=== PATIENT | male | born 1965 | race Caucasian/White ===

== ENCOUNTER 2016-09-05 11:37 | Emergency (ER) | payer OTHER ==
[~2016-09-05] VITALS: Ht 167.6 cm; Wt 82.0 kg
[~2016-09-05 11:37] MED LIST: METH10 PO
[2016-09-05 13:32] VITALS: BP 115/73
== END 2016-09-05 13:34 | disposition home or self-care (01) ==
LOC: EMS 11:40
DX: L02.416 Cutaneous abscess of left lower limb (principal); L03.116 Cellulitis of left lower limb; L08.9 Local infection of the skin and subcutaneous tissue, unspecified; F11.10 Opioid abuse, uncomplicated; F17.210 Nicotine dependence, cigarettes, uncomplicated; Z88.0 Allergy status to penicillin; Z88.2 Allergy status to sulfonamides
CPT/HCPCS: 99283

== ENCOUNTER 2019-05-20 13:21 | Emergency (ER) | payer MEDICAID, OTHER ==
[~2019-05-20] VITALS: Ht 167.6 cm; Wt 74.0 kg
[2019-05-20] MEDS ORDERED: INHALER IH (13:24)
[2019-05-20] MEDS ORDERED: SODIUM CHLORIDE 0.9% 2,200 ML IV ONE (15:13)
[2019-05-20] MEDS ORDERED: 0.9% SODIUM CHLORIDE 10 ML SYRINGE IVP PRN (15:15)
[2019-05-20] MEDS ORDERED: MethylPREDNISolone SOD SUCC 125 MG/2 ML VIAL IVP ONE (16:00)
[2019-05-20] MEDS ORDERED: ALBUTEROL SULFATE 5 MG/ML 20 ML NEB SOLN [BULK] NEB ONE (16:00)
[2019-05-20] MEDS ORDERED: IPRATROPIUM BROMIDE 0.5 MG/2.5 ML NEB SOLUTION NEB ONE (16:00)
[2019-05-20 16:03] LABS: BASOPHILS % (AUTO) 0.3 % (0.0-2.0); EOSINOPHILS % (AUTO) 4.3 % (1.0-6.0); HEMATOCRIT 40.7 % (41-53); HEMOGLOBIN 13.6 g/dL (13.5-17.5); LYMPHOCYTES # (AUTO) 0.3 K/uL (1.0-4.8); MEAN CORPUSCULAR HEMOGLOBIN 27.1 pg (26.0-34.0); MEAN CORPUSCULAR HGB CONC 33.4 G/dL (31.0-37.0); MEAN CORPUSCULAR VOLUME 81 fL (80-100); MONOCYTES # (AUTO) 0.6 K/uL (0.1-1.0); MONOCYTES % (AUTO) 9.1 % (2.0-9.0); NEUTROPHILS # (AUTO) 4.9 K/uL (1.8-7.7); NEUTROPHILS % (AUTO) 81.3 % (40.0-70.0); PLATELET COUNT (AUTO) 186 K/uL (150-450); RED BLOOD CELL COUNT(AUTO) 5.01 MIL/uL (4.50-5.90)
[2019-05-20 16:19] LABS: ANION GAP 6 mmol/L (8-16); CALCIUM, TOTAL 8.9 mg/dL (8.8-10.5); CARBON DIOXIDE 30 mmol/L (22-29); CHLORIDE 99 mmol/L (98-107); CREATININE 1.03 mg/dL (0.60-1.30); GLOMERULAR FILTR. RATE CALC > 60 mL/min (>60); GLUCOSE,RANDOM 138 mg/dL (70-110); POTASSIUM 4.2 mmol/L (3.5-5.1); SODIUM SERUM 135 mmol/L (136-145); UREA NITROGEN, BLOOD 17 mg/dL (7-18)
[2019-05-20 16:23] LABS: ALANINE AMINOTRANSFERASE 126 U/L (12-78); ALBUMIN 3.3 g/dL (3.4-5.0); ALKALINE PHOSPHATASE 285 U/L (46-116); ASPARTATE AMINOTRANSFERASE 178 U/L (15-37); BILIRUBIN,TOTAL 0.8 mg/dL (0.1-1.0); TOTAL PROTEIN, SERUM 8.3 g/dL (6.4-8.2)
[2019-05-20 16:25] LABS: INFLUENZA TYPE A NEGATIVE FOR TYPE A (NEGATIVE); INFLUENZA TYPE B NEGATIVE FOR TYPE B (NEGATIVE)
[2019-05-20 16:28] LABS: D-DIMER 2.53 mg/L FEU (0.00-0.50); INR 1.1 (0.9-1.1); PROTHROMBIN TIME 10.8 SEC (9.4-11.6)
[2019-05-20 16:31] LABS: LACTIC ACID 1.2 mmol/L (0.4-2.0)
[2019-05-20 16:50] LABS: B-TYPE NATRIURETIC PEPTIDE 67 pg/mL (0-100)
[2019-05-20] MEDS ORDERED: IOVERSOL 320 MG/ML 100 ML VIAL ONE (17:48)
[2019-05-20] MEDS ORDERED: SODIUM CHLORIDE 0.9% 100 ML ONE (17:49)
[2019-05-20 22:37] VITALS: BP 145/98
[2019-05-20] MEDS ORDERED: ALBUTEROL SULFATE HFA 90 MCG/PUFF 8 GM INHALER IH ONE (22:45)
== END 2019-05-21 02:00 | disposition home or self-care (01) ==
LOC: EMS 13:22
DX: J44.1 Chronic obstructive pulmonary disease with (acute) exacerbation (principal); M48.54XA Collapsed vertebra, not elsewhere classified, thoracic region, initial encounter for fracture; M48.56XA Collapsed vertebra, not elsewhere classified, lumbar region, initial encounter for fracture; R91.1 Solitary pulmonary nodule; F17.210 Nicotine dependence, cigarettes, uncomplicated; Z88.0 Allergy status to penicillin; Z88.1 Allergy status to other antibiotic agents
CPT/HCPCS: 36415; 71045; 71275; 80053; 83605; 83880; 84484; 85025; 85379; 85610; 87040; 87804; 93005; 94640; 96374; 99285; J2930; J7030; J7050; Q9967; J3535

== ENCOUNTER 2019-06-17 15:28 | Inpatient (IN) | payer MEDICAID, OTHER ==
[~2019-06-17] VITALS: Ht 167.6 cm; Wt 67.1 kg
[~2019-06-17 15:28] MED LIST changes: +INHALER IH; -METH10 PO
[2019-06-17] MEDS ORDERED: HYDROmorphone 2 MG/ML SYRINGE IVP ONE (17:00)
[2019-06-17] MEDS ORDERED: LIDOCAINE 1% 10 ML VIAL INJ ONE (17:00)
[2019-06-17] MEDS ORDERED: CLINDAMYCIN 900 MG/D5% WATER 50 ML IV ONE (17:00)
[2019-06-17 17:23] LABS: HEMATOCRIT 37.5 % (41-53); HEMOGLOBIN 12.5 g/dL (13.5-17.5); LYMPHOCYTES # (AUTO) 2.1 K/uL (1.0-4.8); LYMPHOCYTES % (AUTO) 32.9 % (22.0-44.0); MEAN CORPUSCULAR HEMOGLOBIN 27.1 pg (26.0-34.0); MEAN CORPUSCULAR HGB CONC 33.4 G/dL (31.0-37.0); MEAN CORPUSCULAR VOLUME 81 fL (80-100); MONOCYTES # (AUTO) 0.7 K/uL (0.1-1.0); NEUTROPHILS # (AUTO) 3.2 K/uL (1.8-7.7); NEUTROPHILS % (AUTO) 51.1 % (40.0-70.0); PLATELET COUNT (AUTO) 265 K/uL (150-450); RED BLOOD CELL COUNT(AUTO) 4.61 MIL/uL (4.50-5.90); RED CELL DISTRIBUTION WIDTH 15.1 % (11.5-14.5)
[2019-06-17 17:35] LABS: ANION GAP 6 mmol/L (8-16); CALCIUM, TOTAL 9.6 mg/dL (8.8-10.5); CARBON DIOXIDE 34 mmol/L (22-29); CHLORIDE 101 mmol/L (98-107); CREATININE 0.88 mg/dL (0.60-1.30); GLOMERULAR FILTR. RATE CALC > 60 mL/min (>60); GLUCOSE,RANDOM 103 mg/dL (70-110); POTASSIUM 4.3 mmol/L (3.5-5.1); SODIUM SERUM 141 mmol/L (136-145); UREA NITROGEN, BLOOD 18 mg/dL (7-18)
[2019-06-17 17:41] LABS: ALANINE AMINOTRANSFERASE 27 U/L (12-78); ALBUMIN 3.1 g/dL (3.4-5.0); ALKALINE PHOSPHATASE 141 U/L (46-116); ASPARTATE AMINOTRANSFERASE 31 U/L (15-37); BILIRUBIN,TOTAL 0.3 mg/dL (0.1-1.0); TOTAL PROTEIN, SERUM 7.9 g/dL (6.4-8.2)
[2019-06-17 21:10] VITALS: BP 110/72
[2019-06-17] MEDS ORDERED: ZOLPIDEM TARTRATE 5 MG TABLET PO PRN (21:30)
[2019-06-17] MEDS ORDERED: BISACODYL 10 MG RECTAL RECTAL SUPPOSITORY PR PRN (21:30)
[2019-06-17] MEDS ORDERED: MAGNESIUM HYDROXIDE SUSPENSION 30 ML UDCUP PO PRN (21:30)
[2019-06-17] MEDS ORDERED: ALBUTEROL SULFATE 2.5 MG/0.5 ML NEB SOLUTION NEB PRN (21:30)
[2019-06-17] MEDS ORDERED: ONDANSETRON HCL 4 MG/2 ML VIAL IVP PRN (21:30)
[2019-06-17] MEDS ORDERED: ACETAMINOPHEN 325 MG TABLET PO PRN (21:30)
[2019-06-17] MEDS ORDERED: MORPHINE SULFATE 2 MG/ML SYRINGE IVP PRN (21:30)
[2019-06-17] MEDS ORDERED: VANCOMYCIN HCL 1.25 GM in DEXTROSE 5%-WATER 250 ML IV ONE (22:00)
[2019-06-17] MEDS ORDERED: SODIUM CHLORIDE 0.9% 250 ML IV ONE (22:45)
[2019-06-17] MEDS: HEPARIN SODIUM,PORCINE 5,000 UNITS/ML VIAL SQ SCH (22:56)
[2019-06-18] VITALS (7 sets, daily range): BP systolic 105–140; BP diastolic 57–80
[2019-06-18] MEDS: VANCOMYCIN HCL 750 MG in DEXTROSE 5%-WATER 250 ML IV SCH ×2 (06:58→15:40)
[2019-06-18] MEDS: DOCUSATE SODIUM 100 MG CAPSULE PO SCH ×2 (08:28→21:00)
[2019-06-18] MEDS: PANTOPRAZOLE SODIUM 40 MG DR TABLET PO SCH (08:30)
[2019-06-18] MEDS: HEPARIN SODIUM,PORCINE 5,000 UNITS/ML VIAL SQ SCH ×2 (08:30→15:55)
[2019-06-18] MEDS: HYDROCODONE/ACETAMINOPHEN 5-325 MG TABLET PO PRN ×2 (09:06→21:14)
[2019-06-18 10:49] LABS: BASOPHILS % (AUTO) 1.1 % (0.0-2.0); EOSINOPHILS % (AUTO) 6.3 % (1.0-6.0); HEMATOCRIT 39.5 % (41-53); HEMOGLOBIN 13.3 g/dL (13.5-17.5); LYMPHOCYTES # (AUTO) 1.5 K/uL (1.0-4.8); LYMPHOCYTES % (AUTO) 33.7 % (22.0-44.0); MEAN CORPUSCULAR HEMOGLOBIN 27.3 pg (26.0-34.0); MEAN CORPUSCULAR HGB CONC 33.5 G/dL (31.0-37.0); MEAN CORPUSCULAR VOLUME 82 fL (80-100); MONOCYTES # (AUTO) 0.5 K/uL (0.1-1.0); MONOCYTES % (AUTO) 10.9 % (2.0-9.0); NEUTROPHILS # (AUTO) 2.1 K/uL (1.8-7.7); PLATELET COUNT (AUTO) 237 K/uL (150-450); RED BLOOD CELL COUNT(AUTO) 4.85 MIL/uL (4.50-5.90); RED CELL DISTRIBUTION WIDTH 15.1 % (11.5-14.5)
[2019-06-18] MEDS ORDERED: METH10SO PO (10:56)
[2019-06-18 10:58] LABS: ANION GAP 3 mmol/L (8-16); CALCIUM, TOTAL 9.2 mg/dL (8.8-10.5); CARBON DIOXIDE 33 mmol/L (22-29); CHLORIDE 104 mmol/L (98-107); CREATININE 0.79 mg/dL (0.60-1.30); GLOMERULAR FILTR. RATE CALC > 60 mL/min (>60); GLUCOSE,RANDOM 100 mg/dL (70-110); POTASSIUM 5.1 mmol/L (3.5-5.1); SODIUM SERUM 140 mmol/L (136-145); UREA NITROGEN, BLOOD 14 mg/dL (7-18)
[2019-06-18] MEDS ORDERED: METHADONE HCL 10 MG/5 ML SOLUTION ORAL.SYG PO SCH (11:00)
[2019-06-18] MEDS: METHADONE HCL 10 MG TABLET PO SCH (12:52)
[2019-06-19 04:50] VITALS: BP 128/85
[2019-06-19] MEDS: HYDROCODONE/ACETAMINOPHEN 5-325 MG TABLET PO PRN ×2 (06:06→14:26)
[2019-06-19] MEDS: VANCOMYCIN HCL 750 MG in DEXTROSE 5%-WATER 250 ML IV SCH ×4 (06:07→16:00)
[2019-06-19 07:35] LABS: BASOPHILS % (AUTO) 1.1 % (0.0-2.0); EOSINOPHILS % (AUTO) 6.5 % (1.0-6.0); HEMATOCRIT 38.5 % (41-53); LYMPHOCYTES # (AUTO) 2.3 K/uL (1.0-4.8); LYMPHOCYTES % (AUTO) 38.7 % (22.0-44.0); MEAN CORPUSCULAR HEMOGLOBIN 27.5 pg (26.0-34.0); MEAN CORPUSCULAR HGB CONC 33.8 G/dL (31.0-37.0); MEAN CORPUSCULAR VOLUME 81 fL (80-100); MONOCYTES # (AUTO) 0.5 K/uL (0.1-1.0); MONOCYTES % (AUTO) 8.6 % (2.0-9.0); NEUTROPHILS # (AUTO) 2.7 K/uL (1.8-7.7); NEUTROPHILS % (AUTO) 45.1 % (40.0-70.0); PLATELET COUNT (AUTO) 286 K/uL (150-450); RED BLOOD CELL COUNT(AUTO) 4.73 MIL/uL (4.50-5.90)
[2019-06-19 07:48] LABS: ANION GAP 6 mmol/L (8-16); CALCIUM, TOTAL 9.3 mg/dL (8.8-10.5); CARBON DIOXIDE 30 mmol/L (22-29); CHLORIDE 100 mmol/L (98-107); CREATININE 0.74 mg/dL (0.60-1.30); GLOMERULAR FILTR. RATE CALC > 60 mL/min (>60); GLUCOSE,RANDOM 91 mg/dL (70-110); POTASSIUM 4.4 mmol/L (3.5-5.1); SODIUM SERUM 136 mmol/L (136-145); UREA NITROGEN, BLOOD 15 mg/dL (7-18); VANCOMYCIN,RANDOM 16.2 mcg/mL (25.0-50.0)
[2019-06-19] MEDS: PANTOPRAZOLE SODIUM 40 MG DR TABLET PO SCH (08:31)
[2019-06-19] MEDS: DOCUSATE SODIUM 100 MG CAPSULE PO SCH (08:31)
[2019-06-19] MEDS: METHADONE HCL 10 MG TABLET PO SCH (08:31)
[2019-06-19] MEDS: HEPARIN SODIUM,PORCINE 5,000 UNITS/ML VIAL SQ SCH ×3 (08:31→16:02)
[2019-06-19 09:31] VITALS: BP 134/73
[2019-06-19 13:35] VITALS: BP 111/69
== END 2019-06-19 18:00 | disposition home or self-care (01) | DRG 383 ==
LOC: EMS 15:29 → 6N 18:49
PROVIDERS: ADMIT Internal Medicine; ATTEND Internal Medicine
PROC: 0Y9H0ZZ Drainage of Right Lower Leg, Open Approach (ICD-10-PCS; principal; 2019-06-17)
DX: L03.115 Cellulitis of right lower limb (principal); F17.210 Nicotine dependence, cigarettes, uncomplicated; J45.909 Unspecified asthma, uncomplicated; L02.415 Cutaneous abscess of right lower limb; Z88.0 Allergy status to penicillin; Z88.2 Allergy status to sulfonamides
CPT/HCPCS: 73700; 87070; 87081; 87205; 93970; 96365; J1170; J1644; J3370; J3490; J7050; J7060

== ENCOUNTER 2019-06-28 07:30 | Inpatient (IN) | payer OTHER ==
[~2019-06-28] VITALS: Ht 170.2 cm; Wt 67.4 kg
[~2019-06-28 07:30] MED LIST changes: +METH10SO PO
[2019-06-28] MEDS ORDERED: MethylPREDNISolone SOD SUCC 125 MG/2 ML VIAL IVP ONE (07:45)
[2019-06-28] MEDS ORDERED: IPRATROPIUM BROMIDE 0.5 MG/2.5 ML NEB SOLUTION NEB ONE (07:45)
[2019-06-28] MEDS ORDERED: ALBUTEROL SULFATE 5 MG/ML 20 ML NEB SOLN [BULK] NEB ONE (07:45)
[2019-06-28] MEDS ORDERED: 0.9% SODIUM CHLORIDE 5 ML NEB SOLUTION NEB ONE (07:46)
[2019-06-28 07:49] LABS: BASOPHILS % (AUTO) 0.6 % (0.0-2.0); EOSINOPHILS % (AUTO) 1.2 % (1.0-6.0); HEMATOCRIT 41.3 % (41-53); HEMOGLOBIN 13.5 g/dL (13.5-17.5); LYMPHOCYTES # (AUTO) 3.1 K/uL (1.0-4.8); LYMPHOCYTES % (AUTO) 19.7 % (22.0-44.0); MEAN CORPUSCULAR HGB CONC 32.7 G/dL (31.0-37.0); MEAN CORPUSCULAR VOLUME 83 fL (80-100); MONOCYTES # (AUTO) 1.4 K/uL (0.1-1.0); MONOCYTES % (AUTO) 8.4 % (2.0-9.0); NEUTROPHILS # (AUTO) 11.2 K/uL (1.8-7.7); NEUTROPHILS % (AUTO) 70.1 % (40.0-70.0); PLATELET COUNT (AUTO) 362 K/uL (150-450); RED BLOOD CELL COUNT(AUTO) 5.01 MIL/uL (4.50-5.90)
[2019-06-28 07:57] LABS: ANION GAP 7 mmol/L (8-16); CARBON DIOXIDE 29 mmol/L (22-29); CHLORIDE 99 mmol/L (98-107); CREATININE 0.82 mg/dL (0.60-1.30); GLOMERULAR FILTR. RATE CALC > 60 mL/min (>60); GLUCOSE,RANDOM 102 mg/dL (70-110); POTASSIUM 4.8 mmol/L (3.5-5.1); SODIUM SERUM 135 mmol/L (136-145); UREA NITROGEN, BLOOD 12 mg/dL (7-18)
[2019-06-28 08:03] LABS: ALANINE AMINOTRANSFERASE 33 U/L (12-78); ALBUMIN 3.3 g/dL (3.4-5.0); ALKALINE PHOSPHATASE 175 U/L (46-116); ASPARTATE AMINOTRANSFERASE 42 U/L (15-37); BILIRUBIN,TOTAL 0.7 mg/dL (0.1-1.0); TOTAL PROTEIN, SERUM 9.6 g/dL (6.4-8.2)
[2019-06-28 08:20] LABS: B-TYPE NATRIURETIC PEPTIDE 251 pg/mL (0-100)
[2019-06-28] MEDS ORDERED: ACETAMINOPHEN 325 MG TABLET PO PRN ×2 (09:15→16:00)
[2019-06-28] MEDS ORDERED: ONDANSETRON HCL 4 MG/2 ML VIAL IVP PRN ×2 (09:15→16:00)
[2019-06-28] MEDS: ALBUTEROL SULFATE 2.5 MG/0.5 ML NEB SOLUTION NEB SCH ×4 (10:46→22:55)
[2019-06-28] MEDS: IPRATROPIUM BROMIDE 0.5 MG/2.5 ML NEB SOLUTION NEB SCH ×4 (10:46→22:55)
[2019-06-28] MEDS ORDERED: ZOLPIDEM TARTRATE 5 MG TABLET PO PRN (16:00)
[2019-06-28] MEDS ORDERED: BISACODYL 10 MG RECTAL RECTAL SUPPOSITORY PR PRN (16:00)
[2019-06-28] MEDS ORDERED: IPRATROPIUM BROMIDE 0.5 MG/2.5 ML NEB SOLUTION NEB PRN (16:00)
[2019-06-28] MEDS ORDERED: METHADONE HCL 10 MG TABLET PO ONE (16:00)
[2019-06-28] MEDS ORDERED: ALBUTEROL SULFATE 2.5 MG/0.5 ML NEB SOLUTION NEB PRN (16:00)
[2019-06-28] MEDS ORDERED: MAGNESIUM HYDROXIDE SUSPENSION 30 ML UDCUP PO PRN (16:00)
[2019-06-28] MEDS: HEPARIN SODIUM,PORCINE 5,000 UNITS/ML VIAL SQ SCH (16:19)
[2019-06-28 16:41] VITALS: BP 113/68
[2019-06-28] MEDS ORDERED: PNEUMOCOCCAL VACCINE POLYVALENT 0.5 ML VIAL [PPSV23] IM ONE (17:30)
[2019-06-28] MEDS: MethylPREDNISolone SOD SUCC 125 MG/2 ML VIAL IVP SCH ×2 (17:35→23:10)
[2019-06-28 19:44] VITALS: BP 116/65
[2019-06-28] MEDS: DOCUSATE SODIUM 100 MG CAPSULE PO SCH (20:35)
[2019-06-28] MEDS: BENZONATATE 100 MG CAPSULE PO PRN (20:51)
[2019-06-28] MEDS: MORPHINE SULFATE 2 MG/ML SYRINGE IVP PRN (23:10)
[2019-06-28 23:38] VITALS: BP 135/68
[2019-06-29] MEDS: IPRATROPIUM BROMIDE 0.5 MG/2.5 ML NEB SOLUTION NEB SCH ×6 (02:53→23:09)
[2019-06-29] MEDS: ALBUTEROL SULFATE 2.5 MG/0.5 ML NEB SOLUTION NEB SCH ×6 (02:53→23:09)
[2019-06-29 04:42] VITALS: BP 116/65
[2019-06-29] MEDS: MethylPREDNISolone SOD SUCC 125 MG/2 ML VIAL IVP SCH ×3 (05:49→17:09)
[2019-06-29 08:04] VITALS: BP 132/79
[2019-06-29] MEDS: PANTOPRAZOLE SODIUM 40 MG DR TABLET PO SCH (08:08)
[2019-06-29] MEDS: HEPARIN SODIUM,PORCINE 5,000 UNITS/ML VIAL SQ SCH ×3 (08:08→17:09)
[2019-06-29] MEDS: DOCUSATE SODIUM 100 MG CAPSULE PO SCH ×2 (08:09→20:10)
[2019-06-29] MEDS: METHADONE HCL 10 MG/5 ML SOLUTION ORAL.SYG PO SCH (08:09)
[2019-06-29 11:56] VITALS: BP 111/65
[2019-06-29] MEDS: MORPHINE SULFATE 2 MG/ML SYRINGE IVP PRN ×2 (14:18→20:07)
[2019-06-29 15:35] VITALS: BP 102/62
[2019-06-29 19:53] VITALS: BP 130/86
[2019-06-29 23:40] VITALS: BP 132/75
[2019-06-30] MEDS: MethylPREDNISolone SOD SUCC 125 MG/2 ML VIAL IVP SCH ×4 (00:08→17:33)
[2019-06-30] MEDS: MORPHINE SULFATE 2 MG/ML SYRINGE IVP PRN ×4 (00:08→21:15)
[2019-06-30] MEDS: BENZONATATE 100 MG CAPSULE PO PRN ×2 (03:15→05:46)
[2019-06-30] MEDS: ALBUTEROL SULFATE 2.5 MG/0.5 ML NEB SOLUTION NEB SCH ×6 (03:19→23:37)
[2019-06-30] MEDS: IPRATROPIUM BROMIDE 0.5 MG/2.5 ML NEB SOLUTION NEB SCH ×6 (03:19→23:37)
[2019-06-30 03:26] VITALS: BP 148/87
[2019-06-30 06:34] LABS: BASOPHILS % (AUTO) 0.1 % (0.0-2.0); EOSINOPHILS % (AUTO) 0 % (1.0-6.0); HEMATOCRIT 33.7 % (41-53); HEMOGLOBIN 11.3 g/dL (13.5-17.5); LYMPHOCYTES # (AUTO) 1.1 K/uL (1.0-4.8); LYMPHOCYTES % (AUTO) 6.8 % (22.0-44.0); MEAN CORPUSCULAR HEMOGLOBIN 27.3 pg (26.0-34.0); MEAN CORPUSCULAR HGB CONC 33.5 G/dL (31.0-37.0); MEAN CORPUSCULAR VOLUME 82 fL (80-100); MONOCYTES # (AUTO) 0.7 K/uL (0.1-1.0); MONOCYTES % (AUTO) 4.4 % (2.0-9.0); NEUTROPHILS # (AUTO) 13.7 K/uL (1.8-7.7); PLATELET COUNT (AUTO) 396 K/uL (150-450); RED BLOOD CELL COUNT(AUTO) 4.14 MIL/uL (4.50-5.90); RED CELL DISTRIBUTION WIDTH 15.2 % (11.5-14.5)
[2019-06-30 06:50] LABS: NEUTROPHILS % (AUTO) 88.7 % (40.0-70.0)
[2019-06-30 06:51] LABS: ALANINE AMINOTRANSFERASE 51 U/L (12-78); ALBUMIN 2.6 g/dL (3.4-5.0); ALKALINE PHOSPHATASE 125 U/L (46-116); ANION GAP 6 mmol/L (8-16); ASPARTATE AMINOTRANSFERASE 43 U/L (15-37); BILIRUBIN,TOTAL 0.2 mg/dL (0.1-1.0); CALCIUM, TOTAL 9.7 mg/dL (8.8-10.5); CARBON DIOXIDE 32 mmol/L (22-29); CHLORIDE 101 mmol/L (98-107); CREATININE 0.78 mg/dL (0.60-1.30); GLOMERULAR FILTR. RATE CALC > 60 mL/min (>60); GLUCOSE,RANDOM 134 mg/dL (70-110); POTASSIUM 3.8 mmol/L (3.5-5.1); SODIUM SERUM 139 mmol/L (136-145); TOTAL PROTEIN, SERUM 7.7 g/dL (6.4-8.2); UREA NITROGEN, BLOOD 21 mg/dL (7-18)
[2019-06-30] MEDS: HEPARIN SODIUM,PORCINE 5,000 UNITS/ML VIAL SQ SCH ×3 (08:00→16:00)
[2019-06-30] MEDS: DOCUSATE SODIUM 100 MG CAPSULE PO SCH ×2 (10:22→21:14)
[2019-06-30] MEDS: PANTOPRAZOLE SODIUM 40 MG DR TABLET PO SCH (10:22)
[2019-06-30] MEDS: METHADONE HCL 10 MG/5 ML SOLUTION ORAL.SYG PO SCH (10:30)
[2019-06-30 12:00] VITALS: BP 130/76
[2019-06-30 12:27] LABS: LIPASE 30 U/L (73-393)
[2019-06-30 15:16] VITALS: BP 129/82
[2019-06-30 19:51] VITALS: BP 118/76
[2019-06-30] MEDS: GuaiFENesin SR 600 MG ER TABLET PO SCH (21:14)
[2019-06-30 23:52] VITALS: BP 123/72
[2019-07-01] MEDS: MethylPREDNISolone SOD SUCC 125 MG/2 ML VIAL IVP SCH ×2 (00:28→05:50)
[2019-07-01] MEDS: HEPARIN SODIUM,PORCINE 5,000 UNITS/ML VIAL SQ SCH ×4 (00:28→22:57)
[2019-07-01] MEDS: IPRATROPIUM BROMIDE 0.5 MG/2.5 ML NEB SOLUTION NEB SCH ×6 (03:00→23:07)
[2019-07-01] MEDS: ALBUTEROL SULFATE 2.5 MG/0.5 ML NEB SOLUTION NEB SCH ×6 (03:00→23:07)
[2019-07-01 05:30] VITALS: BP 122/70
[2019-07-01] MEDS: MORPHINE SULFATE 2 MG/ML SYRINGE IVP PRN ×4 (05:50→21:10)
[2019-07-01 07:35] VITALS: BP 152/67
[2019-07-01 08:04] LABS: ALANINE AMINOTRANSFERASE 75 U/L (12-78); ALBUMIN 2.7 g/dL (3.4-5.0); ALKALINE PHOSPHATASE 122 U/L (46-116); ANION GAP 9 mmol/L (8-16); ASPARTATE AMINOTRANSFERASE 52 U/L (15-37); BILIRUBIN,TOTAL 0.2 mg/dL (0.1-1.0); CALCIUM, TOTAL 9.3 mg/dL (8.8-10.5); CARBON DIOXIDE 32 mmol/L (22-29); CHLORIDE 100 mmol/L (98-107); CREATININE 0.75 mg/dL (0.60-1.30); GLOMERULAR FILTR. RATE CALC > 60 mL/min (>60); GLUCOSE,RANDOM 121 mg/dL (70-110); POTASSIUM 4.2 mmol/L (3.5-5.1); SODIUM SERUM 141 mmol/L (136-145); TOTAL PROTEIN, SERUM 7.1 g/dL (6.4-8.2); UREA NITROGEN, BLOOD 20 mg/dL (7-18)
[2019-07-01 08:18] LABS: HEMATOCRIT 35.1 % (41-53); HEMOGLOBIN 11.7 g/dL (13.5-17.5); MEAN CORPUSCULAR HEMOGLOBIN 27.2 pg (26.0-34.0); MEAN CORPUSCULAR HGB CONC 33.3 G/dL (31.0-37.0); MEAN CORPUSCULAR VOLUME 82 fL (80-100); PLATELET COUNT (AUTO) 363 K/uL (150-450); RED BLOOD CELL COUNT(AUTO) 4.29 MIL/uL (4.50-5.90); RED CELL DISTRIBUTION WIDTH 14.9 % (11.5-14.5)
[2019-07-01] MEDS: PANTOPRAZOLE SODIUM 40 MG DR TABLET PO SCH (08:29)
[2019-07-01] MEDS: GuaiFENesin SR 600 MG ER TABLET PO SCH ×2 (08:29→21:10)
[2019-07-01] MEDS: DOCUSATE SODIUM 100 MG CAPSULE PO SCH ×2 (08:56→21:00)
[2019-07-01] MEDS: METHADONE HCL 10 MG/5 ML SOLUTION ORAL.SYG PO SCH (08:57)
[2019-07-01 09:55] LABS: BAND NEUTROPHILS % (MANUAL) 11 % (0-5); LYMPHOCYTES % (MANUAL) 12 % (22-44); MONOCYTES % (MANUAL) 5 % (2-9); SEGMENTED NEUTROPHILS % 72 % (40-70)
[2019-07-01 11:25] VITALS: BP 141/80
[2019-07-01] MEDS: MethylPREDNISolone SOD SUCC 40 MG/ML VIAL IVP SCH ×3 (12:00→22:57)
[2019-07-01] MEDS ORDERED: SODIUM CHLORIDE 0.9% 100 ML ONE (12:20)
[2019-07-01] MEDS ORDERED: IOVERSOL 320 MG/ML 100 ML VIAL ONE (12:20)
[2019-07-01 16:40] VITALS: BP 138/70
[2019-07-01] MEDS: OxyCODONE HCL/ACETAMINOPHEN 5-325 MG TABLET PO PRN (18:13)
[2019-07-01 20:26] VITALS: BP 128/67
[2019-07-02] VITALS (7 sets, daily range): BP systolic 136–173; BP diastolic 81–103
[2019-07-02 01:27] LABS: APPEARANCE,URINE CLEAR (CLEAR); BILIRUBIN,URINE NEGATIVE (NEGATIVE); GLUCOSE, URINE (UA) NEGATIVE (NEGATIVE); KETONES,URINE NEGATIVE (NEGATIVE); LEUKOCYTE ESTERASE ,URINE NEGATIVE (NEGATIVE); NITRATE,URINE NEGATIVE (NEGATIVE); OCCULT BLOOD,URINE NEGATIVE (NEGATIVE); PH,URINE 6.5 (5.0-8.0); PROTEIN,URINE NEGATIVE (NEGATIVE); UROBILINOGEN,URINE 0.2 mg/dL (<=1.0)
[2019-07-02] MEDS: IPRATROPIUM BROMIDE 0.5 MG/2.5 ML NEB SOLUTION NEB SCH ×6 (03:00→23:04)
[2019-07-02] MEDS: ALBUTEROL SULFATE 2.5 MG/0.5 ML NEB SOLUTION NEB SCH ×6 (03:00→23:04)
[2019-07-02] MEDS: MethylPREDNISolone SOD SUCC 40 MG/ML VIAL IVP SCH ×3 (05:24→20:21)
[2019-07-02] MEDS: MORPHINE SULFATE 2 MG/ML SYRINGE IVP PRN ×2 (05:32→20:22)
[2019-07-02] MEDS: DOCUSATE SODIUM 100 MG CAPSULE PO SCH ×2 (08:46→20:21)
[2019-07-02] MEDS: PANTOPRAZOLE SODIUM 40 MG DR TABLET PO SCH (08:48)
[2019-07-02] MEDS: METHADONE HCL 10 MG/5 ML SOLUTION ORAL.SYG PO SCH (08:48)
[2019-07-02] MEDS: HEPARIN SODIUM,PORCINE 5,000 UNITS/ML VIAL SQ SCH ×3 (08:48→23:55)
[2019-07-02] MEDS: GuaiFENesin SR 600 MG ER TABLET PO SCH ×2 (08:48→20:22)
[2019-07-03] MEDS: ALBUTEROL SULFATE 2.5 MG/0.5 ML NEB SOLUTION NEB SCH ×6 (03:00→23:00)
[2019-07-03] MEDS: IPRATROPIUM BROMIDE 0.5 MG/2.5 ML NEB SOLUTION NEB SCH ×6 (03:00→23:00)
[2019-07-03 04:41] VITALS: BP 155/86
[2019-07-03] MEDS: HEPARIN SODIUM,PORCINE 5,000 UNITS/ML VIAL SQ SCH ×3 (08:00→23:47)
[2019-07-03] MEDS: GuaiFENesin SR 600 MG ER TABLET PO SCH ×2 (08:16→20:49)
[2019-07-03] MEDS: DOCUSATE SODIUM 100 MG CAPSULE PO SCH ×2 (08:17→20:51)
[2019-07-03] MEDS: PANTOPRAZOLE SODIUM 40 MG DR TABLET PO SCH (08:17)
[2019-07-03] MEDS: METHADONE HCL 10 MG/5 ML SOLUTION ORAL.SYG PO SCH (08:17)
[2019-07-03] MEDS: MethylPREDNISolone SOD SUCC 40 MG/ML VIAL IVP SCH ×2 (08:17→21:21)
[2019-07-03 11:02] VITALS: BP 150/106
[2019-07-03 16:31] VITALS: BP 134/88
[2019-07-03 19:53] VITALS: BP 151/70
[2019-07-03] MEDS: OxyCODONE HCL/ACETAMINOPHEN 5-325 MG TABLET PO PRN (21:29)
[2019-07-03 23:36] VITALS: BP 103/66
[2019-07-04] MEDS: ALBUTEROL SULFATE 2.5 MG/0.5 ML NEB SOLUTION NEB SCH ×7 (01:20→22:58)
[2019-07-04] MEDS: IPRATROPIUM BROMIDE 0.5 MG/2.5 ML NEB SOLUTION NEB SCH ×7 (01:20→22:58)
[2019-07-04 05:35] VITALS: BP 106/68
[2019-07-04 08:16] VITALS: BP 125/96
[2019-07-04] MEDS: DOCUSATE SODIUM 100 MG CAPSULE PO SCH ×2 (08:38→21:00)
[2019-07-04] MEDS: MethylPREDNISolone SOD SUCC 40 MG/ML VIAL IVP SCH ×2 (08:52→20:50)
[2019-07-04] MEDS: PANTOPRAZOLE SODIUM 40 MG DR TABLET PO SCH (08:52)
[2019-07-04] MEDS: METHADONE HCL 10 MG/5 ML SOLUTION ORAL.SYG PO SCH (08:52)
[2019-07-04] MEDS: GuaiFENesin SR 600 MG ER TABLET PO SCH ×2 (08:52→20:50)
[2019-07-04] MEDS: HEPARIN SODIUM,PORCINE 5,000 UNITS/ML VIAL SQ SCH ×3 (08:53→23:29)
[2019-07-04] MEDS: MORPHINE SULFATE 2 MG/ML SYRINGE IVP PRN ×2 (12:35→23:12)
[2019-07-04 16:00] VITALS: BP 128/69
[2019-07-04 20:07] VITALS: BP 132/77
[2019-07-05 00:03] VITALS: BP 131/69
[2019-07-05] MEDS: ALBUTEROL SULFATE 2.5 MG/0.5 ML NEB SOLUTION NEB SCH ×3 (02:55→11:07)
[2019-07-05] MEDS: IPRATROPIUM BROMIDE 0.5 MG/2.5 ML NEB SOLUTION NEB SCH ×3 (02:55→11:07)
[2019-07-05 04:31] VITALS: BP 108/67
[2019-07-05 07:34] VITALS: BP 141/65
[2019-07-05] MEDS: HEPARIN SODIUM,PORCINE 5,000 UNITS/ML VIAL SQ SCH ×2 (08:00→09:22)
[2019-07-05] MEDS: DOCUSATE SODIUM 100 MG CAPSULE PO SCH ×2 (09:00→09:22)
[2019-07-05] MEDS: METHADONE HCL 10 MG/5 ML SOLUTION ORAL.SYG PO SCH (09:21)
[2019-07-05] MEDS: GuaiFENesin SR 600 MG ER TABLET PO SCH (09:22)
[2019-07-05] MEDS: PANTOPRAZOLE SODIUM 40 MG DR TABLET PO SCH (09:22)
[2019-07-05] MEDS: MethylPREDNISolone SOD SUCC 40 MG/ML VIAL IVP SCH (09:23)
[2019-07-05 11:28] VITALS: BP 153/85
[2019-07-05] MEDS ORDERED: GUAIF600 PO (12:52)
[2019-07-05] MEDS ORDERED: IPRA4AER IH (12:53)
[2019-07-05] MEDS ORDERED: PRED5 PO (12:58)
== END 2019-07-05 14:00 | disposition home or self-care (01) | DRG 140 ==
LOC: EMS 07:31 → 5S 13:27
PROVIDERS: ADMIT Hospitalist; ATTEND Hospitalist
PROC: 5A09357 Assistance with Respiratory Ventilation, Less than 24 Consecutive Hours, Continuous Positive Airway Pressure (ICD-10-PCS; principal; 2019-06-28)
DX: J44.1 Chronic obstructive pulmonary disease with (acute) exacerbation (principal); J96.20 Acute and chronic respiratory failure, unspecified whether with hypoxia or hypercapnia; D72.829 Elevated white blood cell count, unspecified; F11.10 Opioid abuse, uncomplicated; M79.604 Pain in right leg; Z87.01 Personal history of pneumonia (recurrent); Z88.0 Allergy status to penicillin; Z88.2 Allergy status to sulfonamides; Z72.0 Tobacco use; Z28.21 Immunization not carried out because of patient refusal
CPT/HCPCS: 71275; 87081; 93005; 93306; 94640; 94644; 94660; 97116; 97161; 97162; 99291; J1644; J2270; J2920; J2930; J7050

== ENCOUNTER 2021-02-22 06:45 | Inpatient (IN) | payer OTHER ==
[~2021-02-22] VITALS: Ht 170.2 cm; Wt 76.0 kg
[~2021-02-22 06:45] MED LIST changes: +GUAIF600 PO; +IPRA4AER IH; +PRED-409 PO
[2021-02-22] MEDS ORDERED: ACETAMINOPHEN 325 MG TABLET PO ONE (07:00)
[2021-02-22] MEDS ORDERED: *CLINICAL-CEFEPIME DOSING CLINICAL ONE ×2 (07:15→10:45)
[2021-02-22] MEDS ORDERED: BUPRENORPHINE HCL/NALOXONE HCL 2-0.5 MG SUBLINGUAL TABLET SL ONE (07:30)
[2021-02-22] MEDS ORDERED: SODIUM CHLORIDE 0.9% 1,000 ML IV ONE (07:30)
[2021-02-22] MEDS ORDERED: METHADONE HCL 10 MG TABLET PO ONE (07:30)
[2021-02-22 07:38] LABS: BASOPHILS % (AUTO) 0.4 % (0.0-2.0); EOSINOPHILS % (AUTO) 0.1 % (1.0-6.0); HEMATOCRIT 38.5 % (41-53); HEMOGLOBIN 12.2 g/dL (13.5-17.5); LYMPHOCYTES # (AUTO) 1.3 K/uL (1.0-4.8); MEAN CORPUSCULAR HEMOGLOBIN 25.4 pg (26.0-34.0); MEAN CORPUSCULAR HGB CONC 31.7 G/dL (31.0-37.0); MEAN CORPUSCULAR VOLUME 80 fL (80-100); MONOCYTES # (AUTO) 1.1 K/uL (0.1-1.0); MONOCYTES % (AUTO) 8.8 % (2.0-9.0); NEUTROPHILS # (AUTO) 9.6 K/uL (1.8-7.7); NEUTROPHILS % (AUTO) 79.7 % (40.0-70.0); PLATELET COUNT (AUTO) 290 K/uL (150-450)
[2021-02-22 07:50] LABS: COVID AG,FIA SOURCE NASOPHARYNGEAL
[2021-02-22 07:54] LABS: ANION GAP 6 mmol/L (8-16); CARBON DIOXIDE 29 mmol/L (22-29); CHLORIDE 97 mmol/L (98-107); CREATININE 0.77 mg/dL (0.60-1.30); GLOMERULAR FILTR. RATE CALC > 60 mL/min (>60); GLUCOSE,RANDOM 119 mg/dL (70-110); POTASSIUM 4.4 mmol/L (3.5-5.1); SODIUM SERUM 132 mmol/L (136-145); UREA NITROGEN, BLOOD 16 mg/dL (7-18)
[2021-02-22] MEDS ORDERED: VANCOMYCIN HCL 1 GM/D5% WATER 200 ML IV ONE (08:00)
[2021-02-22 08:04] LABS: B-TYPE NATRIURETIC PEPTIDE 46 pg/mL (0-100)
[2021-02-22 08:05] LABS: LACTIC ACID 0.6 mmol/L (0.4-2.0)
[2021-02-22] MEDS ORDERED: SODIUM CHLORIDE 0.9% 100 ML ONE (08:10)
[2021-02-22] MEDS ORDERED: IOHEXOL 350 MG/ML 100 ML VIAL ONE (08:10)
[2021-02-22 08:24] LABS: INFLUENZA TYPE A NEGATIVE FOR TYPE A (NEGATIVE); INFLUENZA TYPE B NEGATIVE FOR TYPE B (NEGATIVE)
[2021-02-22 08:26] LABS: ALANINE AMINOTRANSFERASE 29 U/L (12-78); ALBUMIN 2.7 g/dL (3.4-5.0); ALKALINE PHOSPHATASE 175 U/L (46-116); ASPARTATE AMINOTRANSFERASE 53 U/L (15-37); BILIRUBIN,TOTAL 0.6 mg/dL (0.1-1.0); C-REACTIVE PROTEIN QUANT 8.16 mg/dL (0.00-0.30); FERRITIN 575 ng/mL (26-388); LACTATE DEHYDROGENASE 171 U/L (85-227); TOTAL PROTEIN, SERUM 8.6 g/dL (6.4-8.2)
[2021-02-22 08:38] LABS: D-DIMER 4.25 mg/L FEU (0.00-0.50); PROTHROMBIN TIME 10.9 SEC (9.4-11.6)
[2021-02-22] MEDS ORDERED: DEXAMETHASONE SOD PHOS 4 MG/ML VIAL IVP ONE (08:45)
[2021-02-22] MEDS ORDERED: CEFEPIME HCL 1 GM in DEXTROSE 5%-WATER 50 ML IV ONE (09:00)
[2021-02-22 09:39] LABS: APPEARANCE,URINE CLEAR (CLEAR); BILIRUBIN,URINE NEGATIVE (NEGATIVE); GLUCOSE, URINE (UA) NEGATIVE (NEGATIVE); KETONES,URINE 15 mg/dL (NEGATIVE); LEUKOCYTE ESTERASE ,URINE NEGATIVE (NEGATIVE); NITRATE,URINE NEGATIVE (NEGATIVE); OCCULT BLOOD,URINE NEGATIVE (NEGATIVE); PROTEIN,URINE SEE CONFIRM (NEGATIVE)
[2021-02-22 09:43] LABS: AMPHET/METH SCREEN,URINE NEGATIVE (NEGATIVE); BARBITURATE SCREEN, URINE NEGATIVE (NEGATIVE); BENZODIAZEPINES SCREEN,URINE NEGATIVE (NEGATIVE); CANNABINOID SCREEN,URINE NEGATIVE (NEGATIVE); COCAINE SCREEN,URINE NEGATIVE (NEGATIVE); METHADONE SCREEN, URINE POSITIVE (NEGATIVE); OPIATE SCREEN,URINE POSITIVE (NEGATIVE); PHENCYCLIDINE SCREEN,URINE NEGATIVE (NEGATIVE)
[2021-02-22 09:56] LABS: SULFOSALICYLIC ACID,URINE 2+ (Negative)
[2021-02-22 09:57] LABS: BACTERIA,URINE None Seen /HPF (None Seen); RBC,URINE None Seen /HPF (0-2); SQUAMOUS EPITHELIAL CELL,UR Few /LPF (None Seen); WBC,URINE None Seen /HPF (0-5)
[2021-02-22] MEDS ORDERED: ACETAMINOPHEN 325 MG TABLET PO PRN ×2 (10:00→11:00)
[2021-02-22] MEDS ORDERED: ONDANSETRON HCL 4 MG/2 ML VIAL IVP PRN ×2 (10:00→11:00)
[2021-02-22] MEDS ORDERED: 0.9% SODIUM CHLORIDE 10 ML SYRINGE IVP PRN ×2 (10:00→11:00)
[2021-02-22] MEDS ORDERED: ALBUTEROL SULFATE/IPRATROPIUM 100-20 MCG/SPRAY 4 GM INHALER IH PRN (10:45)
[2021-02-22] MEDS: NICOTINE 21 MG/24 HOUR PATCH TD SCH (11:00)
[2021-02-22] MEDS ORDERED: DOCUSATE SODIUM 100 MG CAPSULE PO PRN (11:00)
[2021-02-22] MEDS ORDERED: BISACODYL 10 MG RECTAL RECTAL SUPPOSITORY PR PRN (11:00)
[2021-02-22] MEDS ORDERED: MAGNESIUM HYDROXIDE SUSPENSION 30 ML UDCUP PO PRN (11:00)
[2021-02-22] MEDS: FAMOTIDINE 10 MG/ML 2 ML VIAL IVP SCH ×2 (11:10→23:43)
[2021-02-22] MEDS: ASCORBIC ACID 500 MG TABLET PO SCH (11:10)
[2021-02-22] MEDS: ZINC SULFATE 220 MG CAPSULE PO SCH ×2 (11:11→23:44)
[2021-02-22] MEDS: FENOFIBRATE 48 MG TABLET PO SCH (11:11)
[2021-02-22] MEDS: MethylPREDNISolone SOD SUCC 40 MG/ML VIAL IVP SCH ×3 (12:01→23:44)
[2021-02-22 12:30] LABS: ABG A-A DIFF O2 47.2 mmHg (10-20.0); ABG BASE EXCESS 4.9 mmol/L (-2.0-3.0); ABG CARBOXYHEMOGLOBIN 1.1 % (0.0-1.5); ABG HCO3 27.7 mmol/L (22.0-26.0); ABG METHEMOGLOBIN 0.2 % (0.0-1.5); ABG OXYGEN SATURATION 96.4 % (95.0-98.0); ABG OXYHEMOGLOBIN 95.1 % (94.0-100.0); ABG PCO2 56 mmHg (35-45); ABG PH 7.356 (7.35-7.450); ABG TOTAL HEMOGLOBIN 13.4 G/dL (12.0-18.0); PO2, ARTERIAL BG 86.8 mmHg (84.0-92.0); TEMPERATURE, FAHRENHEIT, BG 98.7 FAHREN (96.0-98.6)
[2021-02-22 12:31] LABS: O2 DEVICE,BLOOD GAS CANNULA (ROOM AIR); SITE, BLOOD GAS LFT RADIAL
[2021-02-22] MEDS ORDERED: REMDESIVIR 200 MG in SODIUM CHLORIDE 0.9% 250 ML IV ONE (15:45)
[2021-02-22] MEDS ORDERED: VANCOMYCIN HCL 750 MG in DEXTROSE 5%-WATER 250 ML IV ONE (16:00)
[2021-02-22] MEDS: HEPARIN SODIUM,PORCINE 5,000 UNITS/ML VIAL SQ SCH ×2 (16:28→23:44)
[2021-02-22] MEDS: CLINDAMYCIN 900 MG/D5% WATER 50 ML IV SCH (17:51)
[2021-02-22] MEDS ORDERED: CEFEPIME HCL 2 GM in DEXTROSE 5%-WATER 50 ML IV SCH (21:00)
[2021-02-22] MEDS ORDERED: CEFEPIME HCL 2 GM in DEXTROSE 5%-WATER 50 ML IV ONE (21:00)
[2021-02-22] MEDS: CEFEPIME HCL 2 GM in DEXTROSE 5%-WATER 50 ML IV SCH (22:00)
[2021-02-22] MEDS ORDERED: SODIUM CHLORIDE 0.9% 250 ML IV ONE (23:03)
[2021-02-22] MEDS: FluvoxaMINE MALEATE 50 MG TABLET PO SCH (23:43)
[2021-02-22] MEDS: VANCOMYCIN HCL 750 MG in DEXTROSE 5%-WATER 250 ML IV SCH (23:43)
[2021-02-22] MEDS: ALBUTEROL SULFATE/IPRATROPIUM 100-20 MCG/SPRAY 4 GM INHALER IH SCH (23:43)
[2021-02-23] MEDS: CLINDAMYCIN 900 MG/D5% WATER 50 ML IV SCH ×3 (01:30→18:33)
[2021-02-23 04:25] VITALS: BP 105/64
[2021-02-23] MEDS ORDERED: PNEUMOCOCCAL VACCINE POLYVALENT 0.5 ML VIAL [PPSV23] IM. ONE (05:00)
[2021-02-23] MEDS: ALBUTEROL SULFATE/IPRATROPIUM 100-20 MCG/SPRAY 4 GM INHALER IH SCH ×4 (06:01→23:09)
[2021-02-23 06:19] LABS: BASOPHILS % (AUTO) 0.2 % (0.0-2.0); EOSINOPHILS % (AUTO) 0 % (1.0-6.0); HEMATOCRIT 36.4 % (41-53); HEMOGLOBIN 11.8 g/dL (13.5-17.5); LYMPHOCYTES # (AUTO) 0.9 K/uL (1.0-4.8); LYMPHOCYTES % (AUTO) 11.1 % (22.0-44.0); MEAN CORPUSCULAR HEMOGLOBIN 25.7 pg (26.0-34.0); MEAN CORPUSCULAR HGB CONC 32.4 G/dL (31.0-37.0); MEAN CORPUSCULAR VOLUME 79 fL (80-100); MONOCYTES # (AUTO) 0.4 K/uL (0.1-1.0); NEUTROPHILS # (AUTO) 6.6 K/uL (1.8-7.7); NEUTROPHILS % (AUTO) 83.7 % (40.0-70.0); PLATELET COUNT (AUTO) 278 K/uL (150-450); RED CELL DISTRIBUTION WIDTH 14.9 % (11.5-14.5)
[2021-02-23 06:34] LABS: ANION GAP 4 mmol/L (8-16); CALCIUM, TOTAL 8.8 mg/dL (8.8-10.5); CARBON DIOXIDE 32 mmol/L (22-29); CHLORIDE 98 mmol/L (98-107); GLOMERULAR FILTR. RATE CALC > 60 mL/min (>60); GLUCOSE,RANDOM 160 mg/dL (70-110); POTASSIUM 4.2 mmol/L (3.5-5.1); SODIUM SERUM 134 mmol/L (136-145); UREA NITROGEN, BLOOD 18 mg/dL (7-18)
[2021-02-23 06:35] LABS: ALANINE AMINOTRANSFERASE 29 U/L (12-78); ALBUMIN 2.3 g/dL (3.4-5.0); ALKALINE PHOSPHATASE 147 U/L (46-116); ASPARTATE AMINOTRANSFERASE 40 U/L (15-37); BILIRUBIN,TOTAL 0.3 mg/dL (0.1-1.0); TOTAL PROTEIN, SERUM 7.8 g/dL (6.4-8.2)
[2021-02-23] MEDS ORDERED: LIDOCAINE 1% 10 ML VIAL ID STA (06:36)
[2021-02-23 08:23] VITALS: BP 117/72
[2021-02-23] MEDS: NICOTINE 21 MG/24 HOUR PATCH TD SCH (09:00)
[2021-02-23] MEDS: FluvoxaMINE MALEATE 50 MG TABLET PO SCH ×2 (09:00→21:00)
[2021-02-23] MEDS: VANCOMYCIN HCL 750 MG in DEXTROSE 5%-WATER 250 ML IV SCH ×3 (09:26→23:08)
[2021-02-23] MEDS: MethylPREDNISolone SOD SUCC 40 MG/ML VIAL IVP SCH ×3 (09:28→23:08)
[2021-02-23] MEDS: FAMOTIDINE 10 MG/ML 2 ML VIAL IVP SCH ×2 (09:28→23:08)
[2021-02-23] MEDS: HEPARIN SODIUM,PORCINE 5,000 UNITS/ML VIAL SQ SCH ×3 (09:31→23:09)
[2021-02-23] MEDS: FENOFIBRATE 48 MG TABLET PO SCH (09:35)
[2021-02-23] MEDS: ZINC SULFATE 220 MG CAPSULE PO SCH ×2 (09:35→21:19)
[2021-02-23] MEDS: ASCORBIC ACID 500 MG TABLET PO SCH (09:35)
[2021-02-23] MEDS: METHADONE HCL 10 MG TABLET PO SCH (10:38)
[2021-02-23] MEDS: CEFEPIME HCL 2 GM in DEXTROSE 5%-WATER 50 ML IV SCH ×2 (11:31→21:18)
[2021-02-23 11:37] VITALS: BP 131/75
[2021-02-23] MEDS: OxyCODONE HCL/ACETAMINOPHEN 5-325 MG TABLET PO PRN ×2 (13:53→18:41)
[2021-02-23 14:31] LABS: D-DIMER 4.25 mg/L FEU (0.00-0.50)
[2021-02-23 15:24] LABS: C-REACTIVE PROTEIN QUANT 5.49 mg/dL (0.00-0.30)
[2021-02-23 15:38] VITALS: BP_SYST 116; BP_SYST 131; BP_DIAS 71; BP_DIAS 75
[2021-02-23] MEDS: BENZONATATE 100 MG CAPSULE PO PRN ×2 (16:03→21:19)
[2021-02-23] MEDS: REMDESIVIR 100 MG in SODIUM CHLORIDE 0.9% 250 ML IV SCH (19:30)
[2021-02-23 19:53] VITALS: BP 114/70
[2021-02-23 23:36] VITALS: BP 116/68
[2021-02-24] MEDS: CLINDAMYCIN 900 MG/D5% WATER 50 ML IV SCH ×3 (01:10→18:09)
[2021-02-24 04:29] VITALS: BP 125/77
[2021-02-24] MEDS: ALBUTEROL SULFATE/IPRATROPIUM 100-20 MCG/SPRAY 4 GM INHALER IH SCH ×4 (06:20→23:34)
[2021-02-24 07:40] VITALS: BP 123/77
[2021-02-24] MEDS: NICOTINE 21 MG/24 HOUR PATCH TD SCH ×2 (09:00→09:13)
[2021-02-24] MEDS: FENOFIBRATE 48 MG TABLET PO SCH (09:07)
[2021-02-24] MEDS: ZINC SULFATE 220 MG CAPSULE PO SCH ×2 (09:07→20:03)
[2021-02-24] MEDS: FluvoxaMINE MALEATE 50 MG TABLET PO SCH ×2 (09:07→20:03)
[2021-02-24] MEDS: FAMOTIDINE 10 MG/ML 2 ML VIAL IVP SCH ×2 (09:07→20:03)
[2021-02-24] MEDS: MethylPREDNISolone SOD SUCC 40 MG/ML VIAL IVP SCH ×3 (09:07→23:30)
[2021-02-24] MEDS: ASCORBIC ACID 500 MG TABLET PO SCH (09:10)
[2021-02-24] MEDS: HEPARIN SODIUM,PORCINE 5,000 UNITS/ML VIAL SQ SCH ×3 (09:13→23:30)
[2021-02-24] MEDS: VANCOMYCIN HCL 750 MG in DEXTROSE 5%-WATER 250 ML IV SCH ×3 (09:13→23:29)
[2021-02-24] MEDS: METHADONE HCL 10 MG TABLET PO SCH (09:52)
[2021-02-24 12:19] LABS: BASOPHILS % (AUTO) 0.3 % (0.0-2.0); EOSINOPHILS % (AUTO) 0 % (1.0-6.0); HEMATOCRIT 41.7 % (41-53); HEMOGLOBIN 13.3 g/dL (13.5-17.5); LYMPHOCYTES # (AUTO) 0.9 K/uL (1.0-4.8); MEAN CORPUSCULAR HEMOGLOBIN 25.4 pg (26.0-34.0); MEAN CORPUSCULAR HGB CONC 31.8 G/dL (31.0-37.0); MEAN CORPUSCULAR VOLUME 80 fL (80-100); MONOCYTES # (AUTO) 0.8 K/uL (0.1-1.0); MONOCYTES % (AUTO) 6.2 % (2.0-9.0); NEUTROPHILS # (AUTO) 11.1 K/uL (1.8-7.7); PLATELET COUNT (AUTO) 338 K/uL (150-450); RED BLOOD CELL COUNT(AUTO) 5.22 MIL/uL (4.50-5.90); RED CELL DISTRIBUTION WIDTH 15.4 % (11.5-14.5)
[2021-02-24 12:20] VITALS: BP 144/75
[2021-02-24 12:25] LABS: NEUTROPHILS % (AUTO) 86.5 % (40.0-70.0)
[2021-02-24] MEDS ORDERED: SODIUM CHLORIDE 0.9% 250 ML IV ONE (12:42)
[2021-02-24] MEDS: OxyCODONE HCL/ACETAMINOPHEN 5-325 MG TABLET PO PRN ×2 (12:47→21:59)
[2021-02-24] MEDS: CEFEPIME HCL 2 GM in DEXTROSE 5%-WATER 50 ML IV SCH ×2 (12:47→20:58)
[2021-02-24 13:01] LABS: ALANINE AMINOTRANSFERASE 18 U/L (12-78); ALBUMIN 2.6 g/dL (3.4-5.0); ALKALINE PHOSPHATASE 142 U/L (46-116); ANION GAP 5 mmol/L (8-16); ASPARTATE AMINOTRANSFERASE 32 U/L (15-37); BILIRUBIN,TOTAL 0.3 mg/dL (0.1-1.0); C-REACTIVE PROTEIN QUANT 2.31 mg/dL (0.00-0.30); CALCIUM, TOTAL 9.2 mg/dL (8.8-10.5); CARBON DIOXIDE 37 mmol/L (22-29); CHLORIDE 99 mmol/L (98-107); CREATININE 0.92 mg/dL (0.60-1.30); FERRITIN 630 ng/mL (26-388); GLOMERULAR FILTR. RATE CALC > 60 mL/min (>60); GLUCOSE,RANDOM 163 mg/dL (70-110); POTASSIUM 4.3 mmol/L (3.5-5.1); SODIUM SERUM 141 mmol/L (136-145); TOTAL PROTEIN, SERUM 8.4 g/dL (6.4-8.2); UREA NITROGEN, BLOOD 21 mg/dL (7-18); VANCOMYCIN,RANDOM 34.2 mcg/mL (25.0-50.0)
[2021-02-24 16:20] VITALS: BP 120/74
[2021-02-24] MEDS: REMDESIVIR 100 MG in SODIUM CHLORIDE 0.9% 250 ML IV SCH (18:44)
[2021-02-24 20:04] VITALS: BP 119/73
[2021-02-25] VITALS (7 sets, daily range): BP systolic 126–152; BP diastolic 77–92
[2021-02-25] MEDS: OxyCODONE HCL/ACETAMINOPHEN 5-325 MG TABLET PO PRN ×4 (02:08→20:19)
[2021-02-25] MEDS: ALBUTEROL SULFATE/IPRATROPIUM 100-20 MCG/SPRAY 4 GM INHALER IH SCH ×4 (06:21→23:26)
[2021-02-25] MEDS: VANCOMYCIN HCL 750 MG in DEXTROSE 5%-WATER 250 ML IV SCH ×3 (08:00→23:25)
[2021-02-25] MEDS: FluvoxaMINE MALEATE 50 MG TABLET PO SCH ×2 (08:43→20:18)
[2021-02-25] MEDS: ASCORBIC ACID 500 MG TABLET PO SCH (08:45)
[2021-02-25] MEDS: ZINC SULFATE 220 MG CAPSULE PO SCH ×2 (08:45→20:17)
[2021-02-25] MEDS: METHADONE HCL 10 MG TABLET PO SCH (08:45)
[2021-02-25] MEDS: FENOFIBRATE 48 MG TABLET PO SCH (08:46)
[2021-02-25] MEDS: HEPARIN SODIUM,PORCINE 5,000 UNITS/ML VIAL SQ SCH ×3 (08:47→23:22)
[2021-02-25] MEDS: NICOTINE 21 MG/24 HOUR PATCH TD SCH (08:59)
[2021-02-25] MEDS: CLINDAMYCIN 900 MG/D5% WATER 50 ML IV SCH ×3 (09:00→19:00)
[2021-02-25 09:01] LABS: ALANINE AMINOTRANSFERASE 26 U/L (12-78); ALBUMIN 2.6 g/dL (3.4-5.0); ALKALINE PHOSPHATASE 144 U/L (46-116); ANION GAP 5 mmol/L (8-16); ASPARTATE AMINOTRANSFERASE 40 U/L (15-37); BILIRUBIN,TOTAL 0.3 mg/dL (0.1-1.0); C-REACTIVE PROTEIN QUANT 1.31 mg/dL (0.00-0.30); CALCIUM, TOTAL 9.2 mg/dL (8.8-10.5); CARBON DIOXIDE 36 mmol/L (22-29); CHLORIDE 98 mmol/L (98-107); CREATININE 0.79 mg/dL (0.60-1.30); FERRITIN 526 ng/mL (26-388); GLOMERULAR FILTR. RATE CALC > 60 mL/min (>60); GLUCOSE,RANDOM 128 mg/dL (70-110); POTASSIUM 4.4 mmol/L (3.5-5.1); SODIUM SERUM 139 mmol/L (136-145); TOTAL PROTEIN, SERUM 8.5 g/dL (6.4-8.2); UREA NITROGEN, BLOOD 21 mg/dL (7-18); VANCOMYCIN,RANDOM 16.2 mcg/mL (25.0-50.0)
[2021-02-25] MEDS ORDERED: SODIUM CL IRRIG SOLN BOTTLE 250 ML IRRIG ONE (14:05)
[2021-02-25] MEDS: MethylPREDNISolone SOD SUCC 40 MG/ML VIAL IVP SCH ×3 (14:50→23:22)
[2021-02-25] MEDS: FAMOTIDINE 10 MG/ML 2 ML VIAL IVP SCH ×2 (14:51→20:18)
[2021-02-25] MEDS ORDERED: SODIUM CHLORIDE 0.9% 250 ML IV ONE ×2 (15:55→23:20)
[2021-02-25] MEDS: REMDESIVIR 100 MG in SODIUM CHLORIDE 0.9% 250 ML IV SCH (17:33)
[2021-02-26] MEDS: OxyCODONE HCL/ACETAMINOPHEN 5-325 MG TABLET PO PRN ×4 (01:08→20:40)
[2021-02-26] MEDS: CLINDAMYCIN 900 MG/D5% WATER 50 ML IV SCH ×2 (01:09→10:15)
[2021-02-26 04:57] VITALS: BP 149/90
[2021-02-26] MEDS: ALBUTEROL SULFATE/IPRATROPIUM 100-20 MCG/SPRAY 4 GM INHALER IH SCH ×3 (05:15→18:09)
[2021-02-26 07:41] VITALS: BP 144/97
[2021-02-26] MEDS: MethylPREDNISolone SOD SUCC 40 MG/ML VIAL IVP SCH ×3 (08:24→23:49)
[2021-02-26] MEDS: VANCOMYCIN HCL 750 MG in DEXTROSE 5%-WATER 250 ML IV SCH ×2 (08:24→16:16)
[2021-02-26] MEDS: FAMOTIDINE 10 MG/ML 2 ML VIAL IVP SCH ×2 (08:25→20:33)
[2021-02-26] MEDS: HEPARIN SODIUM,PORCINE 5,000 UNITS/ML VIAL SQ SCH ×3 (08:25→23:52)
[2021-02-26] MEDS: METHADONE HCL 10 MG TABLET PO SCH (08:26)
[2021-02-26] MEDS: ZINC SULFATE 220 MG CAPSULE PO SCH ×2 (08:26→20:33)
[2021-02-26] MEDS: ASCORBIC ACID 500 MG TABLET PO SCH (08:26)
[2021-02-26] MEDS: FluvoxaMINE MALEATE 50 MG TABLET PO SCH ×3 (08:26→20:59)
[2021-02-26] MEDS: FENOFIBRATE 48 MG TABLET PO SCH (08:26)
[2021-02-26] MEDS: NICOTINE 21 MG/24 HOUR PATCH TD SCH (09:00)
[2021-02-26 11:43] VITALS: BP 138/86
[2021-02-26 15:09] VITALS: BP 132/67
[2021-02-26 16:07] LABS: BASOPHILS % (AUTO) 0.3 % (0.0-2.0); EOSINOPHILS % (AUTO) 0 % (1.0-6.0); HEMATOCRIT 42.8 % (41-53); HEMOGLOBIN 13.9 g/dL (13.5-17.5); LYMPHOCYTES # (AUTO) 1.2 K/uL (1.0-4.8); LYMPHOCYTES % (AUTO) 11.7 % (22.0-44.0); MEAN CORPUSCULAR HEMOGLOBIN 25.7 pg (26.0-34.0); MEAN CORPUSCULAR HGB CONC 32.6 G/dL (31.0-37.0); MEAN CORPUSCULAR VOLUME 79 fL (80-100); MONOCYTES # (AUTO) 1.4 K/uL (0.1-1.0); NEUTROPHILS # (AUTO) 7.4 K/uL (1.8-7.7); PLATELET COUNT (AUTO) 424 K/uL (150-450); RED BLOOD CELL COUNT(AUTO) 5.43 MIL/uL (4.50-5.90); RED CELL DISTRIBUTION WIDTH 14.9 % (11.5-14.5)
[2021-02-26] MEDS: REMDESIVIR 100 MG in SODIUM CHLORIDE 0.9% 250 ML IV SCH (18:09)
[2021-02-26 20:07] VITALS: BP 155/79
[2021-02-26 23:36] VITALS: BP 135/75
[2021-02-27] MEDS: VANCOMYCIN HCL 750 MG in DEXTROSE 5%-WATER 250 ML IV SCH ×3 (00:02→15:15)
[2021-02-27] MEDS ORDERED: SODIUM CHLORIDE 0.9% 250 ML IV ONE (00:05)
[2021-02-27] MEDS: ALBUTEROL SULFATE/IPRATROPIUM 100-20 MCG/SPRAY 4 GM INHALER IH SCH ×4 (00:44→17:25)
[2021-02-27] MEDS: OxyCODONE HCL/ACETAMINOPHEN 5-325 MG TABLET PO PRN ×3 (00:59→20:38)
[2021-02-27 04:49] VITALS: BP 149/75
[2021-02-27 08:02] VITALS: BP 152/75
[2021-02-27] MEDS: FENOFIBRATE 48 MG TABLET PO SCH (08:29)
[2021-02-27] MEDS: ASCORBIC ACID 500 MG TABLET PO SCH (08:29)
[2021-02-27] MEDS: METHADONE HCL 10 MG TABLET PO SCH (08:30)
[2021-02-27] MEDS: HEPARIN SODIUM,PORCINE 5,000 UNITS/ML VIAL SQ SCH ×2 (08:30→15:14)
[2021-02-27] MEDS: MethylPREDNISolone SOD SUCC 40 MG/ML VIAL IVP SCH ×2 (08:30→15:14)
[2021-02-27] MEDS: FAMOTIDINE 10 MG/ML 2 ML VIAL IVP SCH ×2 (08:30→20:33)
[2021-02-27] MEDS: ZINC SULFATE 220 MG CAPSULE PO SCH ×2 (08:30→21:00)
[2021-02-27] MEDS: FluvoxaMINE MALEATE 50 MG TABLET PO SCH ×2 (08:30→20:49)
[2021-02-27] MEDS: NICOTINE 21 MG/24 HOUR PATCH TD SCH (08:42)
[2021-02-27 16:00] VITALS: BP 134/76
[2021-02-27 16:32] LABS: BASOPHILS % (AUTO) 0.2 % (0.0-2.0); EOSINOPHILS % (AUTO) 0 % (1.0-6.0); HEMATOCRIT 45.4 % (41-53); HEMOGLOBIN 14.3 g/dL (13.5-17.5); LYMPHOCYTES # (AUTO) 1.4 K/uL (1.0-4.8); LYMPHOCYTES % (AUTO) 11.8 % (22.0-44.0); MEAN CORPUSCULAR HEMOGLOBIN 25.3 pg (26.0-34.0); MEAN CORPUSCULAR HGB CONC 31.6 G/dL (31.0-37.0); MEAN CORPUSCULAR VOLUME 80 fL (80-100); MONOCYTES # (AUTO) 1.3 K/uL (0.1-1.0); MONOCYTES % (AUTO) 10.7 % (2.0-9.0); NEUTROPHILS # (AUTO) 9.4 K/uL (1.8-7.7); NEUTROPHILS % (AUTO) 77.3 % (40.0-70.0); PLATELET COUNT (AUTO) 447 K/uL (150-450); RED BLOOD CELL COUNT(AUTO) 5.67 MIL/uL (4.50-5.90); RED CELL DISTRIBUTION WIDTH 15.4 % (11.5-14.5)
[2021-02-27 16:41] LABS: ALANINE AMINOTRANSFERASE 26 U/L (12-78); ALBUMIN 2.7 g/dL (3.4-5.0); ALKALINE PHOSPHATASE 129 U/L (46-116); ANION GAP 5 mmol/L (8-16); ASPARTATE AMINOTRANSFERASE 20 U/L (15-37); BILIRUBIN,TOTAL 0.4 mg/dL (0.1-1.0); C-REACTIVE PROTEIN QUANT 0.25 mg/dL (0.00-0.30); CALCIUM, TOTAL 9.3 mg/dL (8.8-10.5); CARBON DIOXIDE 34 mmol/L (22-29); CHLORIDE 100 mmol/L (98-107); CREATININE 1.06 mg/dL (0.60-1.30); GLOMERULAR FILTR. RATE CALC > 60 mL/min (>60); GLUCOSE,RANDOM 157 mg/dL (70-110); POTASSIUM 4.3 mmol/L (3.5-5.1); SODIUM SERUM 139 mmol/L (136-145); TOTAL PROTEIN, SERUM 8.1 g/dL (6.4-8.2); UREA NITROGEN, BLOOD 28 mg/dL (7-18)
[2021-02-27 17:26] LABS: FERRITIN 646 ng/mL (26-388)
[2021-02-27 20:31] VITALS: BP 143/76
[2021-02-28] MEDS: ZINC SULFATE 220 MG CAPSULE PO SCH ×2 (00:43→08:34)
[2021-02-28] MEDS: HEPARIN SODIUM,PORCINE 5,000 UNITS/ML VIAL SQ SCH ×2 (00:45→08:34)
[2021-02-28] MEDS: MethylPREDNISolone SOD SUCC 40 MG/ML VIAL IVP SCH ×2 (00:46→08:35)
[2021-02-28] MEDS: VANCOMYCIN HCL 750 MG in DEXTROSE 5%-WATER 250 ML IV SCH ×2 (00:47→08:36)
[2021-02-28] MEDS: ALBUTEROL SULFATE/IPRATROPIUM 100-20 MCG/SPRAY 4 GM INHALER IH SCH ×3 (01:06→13:27)
[2021-02-28 04:30] VITALS: BP 135/76
[2021-02-28 08:16] VITALS: BP 132/78
[2021-02-28] MEDS: FENOFIBRATE 48 MG TABLET PO SCH (08:34)
[2021-02-28] MEDS: ASCORBIC ACID 500 MG TABLET PO SCH (08:34)
[2021-02-28] MEDS: METHADONE HCL 10 MG TABLET PO SCH (08:35)
[2021-02-28] MEDS: FAMOTIDINE 10 MG/ML 2 ML VIAL IVP SCH (08:35)
[2021-02-28] MEDS: NICOTINE 21 MG/24 HOUR PATCH TD SCH (09:00)
[2021-02-28] MEDS: FluvoxaMINE MALEATE 50 MG TABLET PO SCH (09:00)
[2021-02-28] MEDS: OxyCODONE HCL/ACETAMINOPHEN 5-325 MG TABLET PO PRN ×2 (11:19→15:21)
[2021-02-28] MEDS ORDERED: ASCO500 PO (14:44)
[2021-02-28] MEDS ORDERED: FLUV50 PO (14:45)
[2021-02-28] MEDS ORDERED: FENO48TA20 PO (14:45)
[2021-02-28] MEDS ORDERED: ZINC220C14 PO (14:48)
[2021-02-28] MEDS ORDERED: SULF-261 PO (14:50)
== END 2021-02-28 17:10 | disposition home or self-care (01) | DRG 710 ==
LOC: EMS 06:48 → 5S 20:38 → 6N 02-26 23:05
PROVIDERS: ADMIT Internal Medicine; ATTEND Internal Medicine
PROC: 0J9L0ZZ Drainage of Right Upper Leg Subcutaneous Tissue and Fascia, Open Approach (ICD-10-PCS; principal; 2021-02-23)
PROC: XW033E5 Introduction of Remdesivir Anti-infective into Peripheral Vein, Percutaneous Approach, New Technology Group 5 (ICD-10-PCS; 2021-02-23)
DX: A41.9 Sepsis, unspecified organism (principal); J96.21 Acute and chronic respiratory failure with hypoxia; J12.82 Pneumonia due to coronavirus disease 2019; U07.1 COVID-19; D63.8 Anemia in other chronic diseases classified elsewhere; J44.0 Chronic obstructive pulmonary disease with (acute) lower respiratory infection; I96 Gangrene, not elsewhere classified; J44.1 Chronic obstructive pulmonary disease with (acute) exacerbation; J96.22 Acute and chronic respiratory failure with hypercapnia; L03.115 Cellulitis of right lower limb; L02.415 Cutaneous abscess of right lower limb; L02.31 Cutaneous abscess of buttock; L02.416 Cutaneous abscess of left lower limb; F11.20 Opioid dependence, uncomplicated; I25.10 Atherosclerotic heart disease of native coronary artery without angina pectoris; F17.210 Nicotine dependence, cigarettes, uncomplicated; R56.9 Unspecified convulsions; Z88.0 Allergy status to penicillin; Z88.2 Allergy status to sulfonamides; Z91.19 Patient's noncompliance with other medical treatment and regimen; Z99.81 Dependence on supplemental oxygen
CPT/HCPCS: 36245; 36569; 36600; 71045; 71260; 73701; 76937; 80053; 80202; 81001; 81002; 82728; 82805; 83605; 83615; 83880; 84145; 84484; 85025; 85379; 85384; 85610; 85651; 85730; 86140; 87040; 87070; 87077; 87186; 87205; 87804; 93005; 93306; 99291; G0480; J0692; J1100; J1644; J2920; J3370; J3490; J7050; J7060; Q9967; 36415-L1; 36415-TC; U0003

== ENCOUNTER 2021-07-25 08:22 | Inpatient (IN) | payer OTHER ==
[~2021-07-25] VITALS: Ht 167.6 cm; Wt 79.5 kg
[~2021-07-25 08:22] MED LIST changes: +ASCO500 PO; +FENO48TA20 PO; +FLUV50 PO; -INHALER IH; -PRED-409 PO; +PRED-549 PO; +SULF-261 PO; +ZINC220C14 PO
[2021-07-25 09:29] LABS: BASOPHILS % (AUTO) 0.7 % (0.0-2.0); EOSINOPHILS % (AUTO) 6.9 % (1.0-6.0); HEMATOCRIT 36.7 % (41-53); HEMOGLOBIN 12.3 g/dL (13.5-17.5); LYMPHOCYTES # (AUTO) 1.4 K/uL (1.0-4.8); LYMPHOCYTES % (AUTO) 17.9 % (22.0-44.0); MEAN CORPUSCULAR HGB CONC 33.6 G/dL (31.0-37.0); MEAN CORPUSCULAR VOLUME 77 fL (80-100); MONOCYTES # (AUTO) 0.8 K/uL (0.1-1.0); MONOCYTES % (AUTO) 9.7 % (2.0-9.0); NEUTROPHILS # (AUTO) 5.1 K/uL (1.8-7.7); NEUTROPHILS % (AUTO) 64.8 % (40.0-70.0); PLATELET COUNT (AUTO) 319 K/uL (150-450); RED BLOOD CELL COUNT(AUTO) 4.75 MIL/uL (4.50-5.90); RED CELL DISTRIBUTION WIDTH 14.6 % (11.5-14.5)
[2021-07-25 09:34] LABS: COVID AG,FIA SOURCE NASOPHARYNGEAL
[2021-07-25 09:39] LABS: ANION GAP 4 mmol/L (8-16); CALCIUM, TOTAL 9.2 mg/dL (8.8-10.5); CARBON DIOXIDE 33 mmol/L (22-29); CHLORIDE 102 mmol/L (98-107); GLOMERULAR FILTR. RATE CALC > 60 mL/min (>60); GLUCOSE,RANDOM 144 mg/dL (70-110); POTASSIUM 3.9 mmol/L (3.5-5.1); SODIUM SERUM 139 mmol/L (136-145); UREA NITROGEN, BLOOD 13 mg/dL (7-18)
[2021-07-25 09:43] LABS: PROTHROMBIN TIME 10.6 SEC (9.4-11.6)
[2021-07-25 09:49] LABS: B-TYPE NATRIURETIC PEPTIDE 36 pg/mL (0-100)
[2021-07-25 09:53] LABS: ALANINE AMINOTRANSFERASE 12 U/L (12-78); ALKALINE PHOSPHATASE 95 U/L (46-116); ASPARTATE AMINOTRANSFERASE 19 U/L (15-37); BILIRUBIN,TOTAL 0.3 mg/dL (0.1-1.0); FREE T4 (FREE THYROXINE) 1.06 ng/dL (0.76-1.46); THYROID STIMULATING HORMONE 1.76 uIU/mL (0.36-3.74); TOTAL PROTEIN, SERUM 8.2 g/dL (6.4-8.2)
[2021-07-25 10:19] LABS: ABG BASE EXCESS 8.2 mmol/L (-2.0-3.0); ABG CARBOXYHEMOGLOBIN 0.6 % (0.0-1.5); ABG HCO3 29.4 mmol/L (22.0-26.0); ABG METHEMOGLOBIN 0.3 % (0.0-1.5); ABG OXYGEN SATURATION 96.8 % (95.0-98.0); ABG OXYHEMOGLOBIN 95.9 % (94.0-100.0); ABG PCO2 79 mmHg (35-45); ABG PH 7.265 (7.35-7.450); ABG TOTAL HEMOGLOBIN 13.3 G/dL (12.0-18.0); O2 DEVICE,BLOOD GAS NC (ROOM AIR); PO2, ARTERIAL BG 92.3 mmHg (84.0-92.0); SITE, BLOOD GAS RT RADIAL; SOURCE, BLOOD GAS ARTERIAL; TEMPERATURE, FAHRENHEIT, BG 98.2 FAHREN (96.0-98.6)
[2021-07-25] MEDS ORDERED: AZITHROMYCIN 500 MG/NS 250 ML IV ONE (10:30)
[2021-07-25] MEDS ORDERED: IPRATROPIUM BROMIDE 0.5 MG/2.5 ML NEB SOLUTION NEB ONE (10:30)
[2021-07-25] MEDS ORDERED: CefTRIAXone 1 GM/DEXTROSE 50 ML IV ONE (10:30)
[2021-07-25] MEDS ORDERED: MethylPREDNISolone SOD SUCC 125 MG/2 ML VIAL IVP ONE (10:30)
[2021-07-25] MEDS ORDERED: ALBUTEROL SULFATE 2.5 MG/0.5 ML NEB SOLUTION NEB ONE (10:30)
[2021-07-25] MEDS ORDERED: ACETAMINOPHEN 325 MG TABLET PO PRN (11:15)
[2021-07-25] MEDS ORDERED: 0.9% SODIUM CHLORIDE 10 ML SYRINGE IVP PRN (11:15)
[2021-07-25] MEDS ORDERED: ONDANSETRON HCL 4 MG/2 ML VIAL IVP PRN ×2 (11:15→11:30)
[2021-07-25] MEDS ORDERED: IPRATROPIUM BROMIDE 0.5 MG/2.5 ML NEB SOLUTION NEB PRN (11:30)
[2021-07-25] MEDS ORDERED: ALBUTEROL SULFATE 2.5 MG/0.5 ML NEB SOLUTION NEB PRN (11:30)
[2021-07-25] MEDS ORDERED: MethylPREDNISolone SOD SUCC 125 MG/2 ML VIAL IVP SCH (12:00)
[2021-07-25 13:42] VITALS: BP 158/82
[2021-07-25 16:07] VITALS: BP 154/90
[2021-07-25] MEDS: HEPARIN SODIUM,PORCINE 5,000 UNITS/ML VIAL SQ SCH ×2 (18:42→23:39)
[2021-07-25] MEDS: MethylPREDNISolone SOD SUCC 125 MG/2 ML VIAL IVP SCH ×2 (18:42→23:39)
[2021-07-25 20:00] VITALS: BP 172/100
[2021-07-25] MEDS ORDERED: DOCUSATE SODIUM 100 MG CAPSULE PO SCH (21:00)
[2021-07-25] MEDS ORDERED: MELATONIN 3 MG TABLET PO ONE (21:00)
[2021-07-25] MEDS ORDERED: FAMOTIDINE 20 MG TABLET PO SCH (21:00)
[2021-07-25] MEDS: ACETAMINOPHEN 325 MG TABLET PO PRN (22:00)
[2021-07-25 22:57] VITALS: BP 161/94
[2021-07-25] MEDS ORDERED: METHADONE HCL 10 MG TABLET PO ONE (23:15)
[2021-07-26] MEDS: IPRATROPIUM BROMIDE 0.5 MG/2.5 ML NEB SOLUTION NEB SCH ×2 (03:41→07:31)
[2021-07-26] MEDS: ALBUTEROL SULFATE 2.5 MG/0.5 ML NEB SOLUTION NEB SCH ×2 (03:42→07:31)
[2021-07-26 04:46] VITALS: BP 143/97
[2021-07-26] MEDS: MethylPREDNISolone SOD SUCC 125 MG/2 ML VIAL IVP SCH (06:21)
[2021-07-26 06:26] LABS: APPEARANCE,URINE CLEAR (CLEAR); BILIRUBIN,URINE NEGATIVE (NEGATIVE); GLUCOSE, URINE (UA) NEGATIVE (NEGATIVE); KETONES,URINE NEGATIVE (NEGATIVE); LEUKOCYTE ESTERASE ,URINE NEGATIVE (NEGATIVE); NITRATE,URINE NEGATIVE (NEGATIVE); OCCULT BLOOD,URINE NEGATIVE (NEGATIVE); PROTEIN,URINE SEE CONFIRM (NEGATIVE); UROBILINOGEN,URINE 0.2 mg/dL (<=1.0)
[2021-07-26 06:31] LABS: AMPHET/METH SCREEN,URINE NEGATIVE (NEGATIVE); BARBITURATE SCREEN, URINE NEGATIVE (NEGATIVE); BENZODIAZEPINES SCREEN,URINE NEGATIVE (NEGATIVE); CANNABINOID SCREEN,URINE NEGATIVE (NEGATIVE); COCAINE SCREEN,URINE NEGATIVE (NEGATIVE); METHADONE SCREEN, URINE POSITIVE (NEGATIVE); OPIATE SCREEN,URINE POSITIVE (NEGATIVE)
[2021-07-26 06:33] LABS: PHENCYCLIDINE SCREEN,URINE NEGATIVE (NEGATIVE)
[2021-07-26 06:36] LABS: SULFOSALICYLIC ACID,URINE 1+ (Negative)
[2021-07-26 06:37] LABS: BACTERIA,URINE None Seen /HPF (None Seen); RBC,URINE 0-2 /HPF (0-2); WBC,URINE None Seen /HPF (0-5)
[2021-07-26] MEDS: ACETAMINOPHEN 325 MG TABLET PO PRN (06:49)
[2021-07-26 08:33] VITALS: BP 163/109
== END 2021-07-26 08:35 | disposition left against medical advice (07) | DRG 140 ==
LOC: EMS 08:23 → 5S 12:58
PROVIDERS: ADMIT Internal Medicine; ATTEND Internal Medicine
PROC: 5A09357 Assistance with Respiratory Ventilation, Less than 24 Consecutive Hours, Continuous Positive Airway Pressure (ICD-10-PCS; principal; 2021-07-25)
PROC: 5A09357 Assistance with Respiratory Ventilation, Less than 24 Consecutive Hours, Continuous Positive Airway Pressure (ICD-10-PCS; 2021-07-26)
DX: J44.1 Chronic obstructive pulmonary disease with (acute) exacerbation (principal); J96.21 Acute and chronic respiratory failure with hypoxia; G93.41 Metabolic encephalopathy; E87.2 Acidosis; Z20.822 Contact with and (suspected) exposure to COVID-19; Z53.29 Procedure and treatment not carried out because of patient's decision for other reasons; F19.10 Other psychoactive substance abuse, uncomplicated; J96.22 Acute and chronic respiratory failure with hypercapnia; Z86.16 Personal history of COVID-19; Z91.19 Patient's noncompliance with other medical treatment and regimen; Z87.891 Personal history of nicotine dependence; Z88.0 Allergy status to penicillin; Z88.2 Allergy status to sulfonamides
CPT/HCPCS: 36600; 71045; 80053; 81001; 81002; 82805; 83605; 83880; 84439; 84443; 84484; 85025; 85610; 85730; 87040; 93005; 94640; 94660; 99291; J0456; J1644; J2405; J2930; 36415-L1; 36415-TC; J7613